=== PATIENT | male | born 1975 | race Two or more races ===

== ENCOUNTER → 2018-06-16 | Outpatient (REF) | payer OTHER ==
[2018-06-16 13:00] LABS: HEMATOCRIT 44.7 % (42.0-52.0); HEMOGLOBIN 15.3 g/dl (13.5-17.5); MEAN CORPUSCULAR HEMOGLOBIN 28.7 pg (27.0-33.0); MEAN CORPUSCULAR HGB CONC 34.2 g/dl (32.0-36.5); MEAN CORPUSCULAR VOLUME 83.7 fl (80.0-96.0); PLATELET COUNT, AUTOMATED 227 10^3/uL (150-450); RED BLOOD COUNT 5.34 10^6/uL (4.30-6.10); WHITE BLOOD COUNT 5.8 10^3/uL (4.0-10.0)
[2018-06-16 13:05] LABS: ALBUMIN 4.3 GM/DL (3.2-5.2); ALT/SGPT 55 U/L (12-78); BILIRUBIN,TOTAL 0.9 MG/DL (0.2-1.0); BLOOD UREA NITROGEN 14 MG/DL (7-18); CALCIUM LEVEL 9.2 MG/DL (8.5-10.1); CARBON DIOXIDE LEVEL 29 MEQ/L (21-32); CHLORIDE LEVEL 105 MEQ/L (98-107); CHOLESTEROL LEVEL 254 MG/DL (<200); CHOLESTEROL RISK RATIO 5.183 (<5); CREATININE FOR GFR 1.02 MG/DL (0.70-1.30); FREE T4 1.01 NG/DL (0.76-1.46); GLOMERULAR FILTRATION RATE > 60.0 (>60); GLUCOSE, FASTING 102 MG/DL (70-100); HDL CHOLESTEROL 49 MG/DL (>40); LDL CHOLESTEROL 177 MG/DL (<100); NON-HDL-C 205 MG/DL; POTASSIUM SERUM 4.1 MEQ/L (3.5-5.1); SODIUM LEVEL 139 MEQ/L (136-145); TOTAL PROTEIN 7.9 GM/DL (6.4-8.2); TRIGLYCERIDES LEVEL 140 MG/DL (<150)
[2018-06-16 13:07] LABS: TOTAL 25(OH) VITAMIN D 20.3 NG/ML (30.0-100.0); VITAMIN B12 LEVEL 432 PG/ML (247-911)
[2018-06-17 14:26] LABS: TESTOSTERONE FREE (DIRECT) 8.2 pg/mL (6.8-21.5)
== END ==
LOC: M SFHCADAM 08:49
PROVIDERS: ATTEND Family Medicine
DX: R53.83 Other fatigue (principal); E29.1 Testicular hypofunction; E55.9 Vitamin D deficiency, unspecified

== ENCOUNTER → 2018-06-21 | Outpatient (CLI) | payer OTHER ==
--- NOTE | 2018-06-22 05:59 | REP ---
Clinical: Testicular cyst. Technique: Real time diaz scale and color Doppler evaluation using linear high frequency transducer. Findings: The bilateral testicles are normal in contour, size, echogenicity, and vascularity without hydronephrosis, nephrolithiasis, cystic or renal mass lesion. No evidence for torsion, intratesticular mass lesion or infectious/inflammatory process. Right testicle measures 5.6 x 3.1 x 3.7 cm and 10.5 mm right epididymal head cyst identified. No significant hydrocele. No varicoceles. Left testicle measures 5.0 x 2.8 x 3.3 cm and includes 29 mm epididymal head cyst as well as left-sided varicoceles measuring up to 3.5 mm diameter on Valsalva. No significant hydrocele. Impression: Large left epididymal head cyst and left-sided varicoceles likely related to the patient's pain and physical findings. Electronically Signed by Ephraim Douglass MD 06/22/2018 05:51 A
== END ==
LOC: M RAD 14:33
PROVIDERS: ATTEND Family Medicine
DX: N50.3 Cyst of epididymis (principal)

== ENCOUNTER 2019-05-05 13:58 | Day surgery (SDC) | payer OTHER ==
[~2019-05-05] VITALS: Ht 190.5 cm; Wt 105.7 kg
[~2019-05-05 13:58] MED LIST: ceFAZolin SOD 2 GM in IV 1 EA IV ONE
[2019-05-05] MEDS ORDERED: HYDR-3713 PO (14:37)
[2019-05-05] MEDS ORDERED: MORPHINE 2 MG/ML 1ML VIAL (J2270) IV ONE (14:54)
[2019-05-05] MEDS ORDERED: LIDOCAINE 2% INJ 100 MG/5 ML SDV (FOR ANES.) As Ordered ONE (15:02)
[2019-05-05] MEDS ORDERED: propofoL 200 MG/20 ML VIAL As Ordered ONE (15:02)
[2019-05-05] MEDS ORDERED: fentaNYL 100 MCG/2 ML INJECTION (J3010) As Ordered ONE ×2 (15:03→15:37)
[2019-05-05] MEDS ORDERED: MIDAZOLAM INJ 2 MG/2 ML VIAL (J2250) As Ordered ONE (15:03)
[2019-05-05] MEDS ORDERED: dexameTHASONE 4 MG/ML 1ML VIAL (J1100) As Ordered ONE (15:04)
[2019-05-05] MEDS ORDERED: ONDANSETRON 4MG/2ML VIAL (J2405) As Ordered ONE (15:04)
[2019-05-05] MEDS ORDERED: BUPIVACAINE/EPIN 0.25% 30 ML VIAL As Ordered ONE (15:22)
[2019-05-05] MEDS ORDERED: KETOROLAC 60 MG/2 ML VIAL (J1885) As Ordered ONE (15:28)
[2019-05-05] MEDS ORDERED: ACETAMINOPHEN 1000MG 100ML IV BTL (OFIRMEV) (J0131 PER 10MG) As Ordered ONE (15:31)
[2019-05-05] MEDS ORDERED: ePHEDrine SULFATE 25 MG/5 ML(5MG/ML) SYRINGE As Ordered ONE (15:41)
[2019-05-05] MEDS ORDERED: GLYCOPYRROLATE INJ 0.2 MG/ML 2 ML VIAL As Ordered ONE (15:41)
[2019-05-05] MEDS: fentaNYL 100 MCG/2 ML INJECTION (J3010) IV PRN ×4 (16:40→17:10)
[2019-05-05] MEDS: PERCOCET 5MG/325MG TAB PO PRN ×2 (16:40→17:15)
[2019-05-05] MEDS ORDERED: LR 1,000 ML IV SCH (16:45)
[2019-05-05] MEDS ORDERED: ONDANSETRON 4MG/2ML VIAL (J2405) IV PRN (16:45)
[2019-05-05] MEDS ORDERED: oxyCODONE 5MG TAB PO PRN ×2 (16:45)
--- NOTE | 2019-05-05 17:06 | REP ---
Left forearm intraoperative fluoroscopic views: A series of four intraoperative fluoroscopic views are performed during internal fixation of the left wrist. The fixation hardware and fracture in satisfactory positions alignment. Fluoroscopic exposure time is 49.5 seconds. Electronically Signed by Emanuel Steen MD 05/05/2019 04:58 P
[2019-05-05] MEDS: HYDROMORPHONE HCL 0.5 MG/ 0.5 ML SYRINGE (J1170 PER 1) IV PRN ×2 (17:35→17:55)
[2019-05-05] MEDS ORDERED: HYDROMORPHONE HCL 0.5 MG/ 0.5 ML SYRINGE (J1170 PER 1) As Ordered ONE (17:52)
[2019-05-05 21:25] VITALS: BP 132/78
--- NOTE | 2019-05-09 15:19 | RO ---
DATE OF PROCEDURE: 05/05/2019 PREOPERATIVE DIAGNOSIS: Left distal radius intra-articular fracture. POSTOPERATIVE DIAGNOSIS: Left distal radius intra-articular fracture. PROCEDURE: Open reduction, internal fixation left distal radius intra-articular fracture. SURGEON: Dr. Shadi Morris SUPERVISOR TRAVEL TRAILER: None. ANESTHESIA: General. PREOPERATIVE ANTIBIOTICS: 2 grams of Ancef. TOURNIQUET TIME: 34 minutes. BLOOD LOSS: Minimal. 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 He underwent closed reduction at an outside hospital. This failed to get adequate reduction. We discussed the risks and benefits of open reduction, internal fixation, including, but not limited to, infection, damage to surrounding structures, incomplete relief, malunion, nonunion. Patient wished to proceed. DESCRIPTION OF PROCEDURE: The patient was brought back to the operating room (OR) in the supine position and underwent general anesthesia, at which point the left arm was prepped and draped in the usual fashion. We then had a time-out confirming site, side, and surgery. Once in agreement, we elevated the tourniquet up to 250 mmHg. We then made a longitudinal incision over the flexor carpi radialis (FCR), controlling superficial bleeders with coagulation. We then entered FCR sheath and retracted it ulnarly and penetrated the deep portion of the sheath, exposing flexor pollicis longus (FPL). This was retracted ulnarly as well, exposing pronator quadratus, which was elevated off the distal radius, exposing the fracture plane. Once the fracture plane was irrigated and debrided thoroughly, we then released brachial radialis of the radial styloid, careful to preserve the posterior extensor compartment. Once this was done, we went through a combination of direct and indirect modes of manipulation using a [place], manual manipulation, and a K-wire to hold the reduction. We confirmed this on AP and lateral films, at which point we selected a three-hole variable angle distal radius Synthes plate and placed it on the distal radius using four distal locking screws, which were confirmed on both AP lateral and obliques to ensure accurate placement along with not penetrating the trabecular surface. Once we were happy with this, we then further reduced the fracture by reducing the plate to the shaft of the bone and held this in place with a point of reduction clamp. We then placed three cortical screws to maintain our reduction. Bilateral reduction and fixation was confirmed on AP and lateral films, and we were happy with this. Then we irrigated thoroughly. Closed subcutaneous tissue with #2-0 Vicryl, skin with #3-0 nylon. Placed the patient's dressing with Adaptic gauze, sterile Webril, and a volar splint. Tourniquet was let down. Patient was then awakened from general anesthesia, taken to the postanesthesia care unit (PACU) in stable condition. POSTOPERATIVE PLAN: Patient will work on pain control and finger range of motion. We will see him back in 2 weeks, at which point we will remove the sutures and place him into an [place] removable brace to work on wrist range of motion and likely start him in therapy at that time. Patient was expressed understanding and agreement with this plan ahead of time.
== END 2019-05-05 21:30 | disposition home or self-care (01) ==
LOC: M SDC 13:58
PROVIDERS: ATTEND Orthopaedic Surgery Hand Surgery
DX: S52.572A Other intraarticular fracture of lower end of left radius, initial encounter for closed fracture (principal); W00.0XXA Fall on same level due to ice and snow, initial encounter; Y93.22 Activity, ice hockey; Y92.330 Ice skating rink (indoor) (outdoor) as the place of occurrence of the external cause; Y99.9 Unspecified external cause status; M51.36 Other intervertebral disc degeneration, lumbar region; Z87.820 Personal history of traumatic brain injury; F32.9 Major depressive disorder, single episode, unspecified; F17.218 Nicotine dependence, cigarettes, with other nicotine-induced disorders; Z91.81 History of falling
CPT/HCPCS: 25608; 73090; C1713; J0131; J0690; J1100; J1170; J1885; J2250; J2270; J2405; J3010

== ENCOUNTER → 2020-12-16 | Outpatient (CLI) | payer OTHER ==
[~2020-12-16] MED LIST changes: +HYDR-3713 PO; -ceFAZolin SOD 2 GM in IV 1 EA IV ONE
--- NOTE | 2020-12-16 11:58 | REP ---
INDICATION: COUGH, FEVER. COMPARISON: None. FINDINGS: The superior mediastinal structures are midline. The cardiac silhouette is unremarkable in size, shape, and position. The diaphragmatic surfaces of the lungs are regular, and the costophrenic angles are clear. The pulmonary nieves are clear. The imaged osseous structures are intact. IMPRESSION: There is no acute cardiopulmonary disease. No significant change from the prior exam. <Electronically signed by Joseph Roque > 12/16/20 1826
== END ==
LOC: M RAD 11:29
PROVIDERS: ATTEND Physician Assistant
DX: R05 Cough (principal); R50.9 Fever, unspecified